=== PATIENT | male | born 1945 | race Caucasian/White ===

== ENCOUNTER 2018-12-04 11:46 | Outpatient (CLI) | payer MEDICARE, OTHER, SELFPAY ==
[2018-12-04 13:28] LABS: BUN 29 mg/dL (7-18); CREATININE 1.03 mg/dL (0.70-1.30); Calcium 9.6 mg/dL (8.5-10.1); Chloride 101 mmol/L (98-107); Glucose 90 mg/dL (70-100); Potassium 5.3 mmol/L (3.5-5.1); Sodium 139 mmol/L (136-145)
== END 2018-12-04 12:06 ==
PROVIDERS: PCP Family Medicine; Visit Provider Family Medicine
DX: I10 Essential (primary) hypertension (principal)
CPT/HCPCS: 36415; 80048

== ENCOUNTER 2019-11-30 13:35 | Outpatient (CLI) | payer MEDICARE, OTHER, SELFPAY ==
--- NOTE | 2019-11-30 14:16 | DI.RAD_ITS ---
EXAM: XR CHEST 2V PA LATERAL CLINICAL HISTORY: copd, J44.9 TECHNIQUE: 2D digital imaging was performed. COMPARISON: CR CHEST 2 VIEWS PA,LAT from 05/19/2009 FINDINGS: MEDIASTINUM: Normal. HEART: Normal. PULMONARY VASCULATURE: Normal. LUNGS: Clear. The lungs are hyperinflated consistent with COPD. PLEURAL SPACE: No pleural effusion or pneumothorax. BONE:No acute abnormality. OTHER FINDINGS:Normal. IMPRESSION: COPD. DATA REPOSITORY: RADIATION DOSE DELIVERED:
== END 2019-11-30 13:55 ==
PROVIDERS: PCP Family Medicine; Visit Provider Nurse Practitioner Family
DX: J44.9 Chronic obstructive pulmonary disease, unspecified (principal)
CPT/HCPCS: 71046

== ENCOUNTER 2019-12-01 03:31 | Outpatient (CLI) | payer MEDICARE, OTHER, SELFPAY ==
[2019-12-01 09:42] LABS: Abs Immature Grans 0.06 k/cumm (0.0-0.09); Absolute Basophil Count 0.04 k/cumm (0.0-0.2); Absolute Eosinophil Count 0.66 k/cumm (0.0-0.7); Absolute Lymphocyte Count 2.64 k/cumm (1.2-3.4); Absolute Monocyte Count 1.01 k/cumm (0.11-0.7); Absolute Neutrophil Count 9.95 k/cumm (1.2-6.7); Basophils % 0.3; Eosinophils % 4.6; HCT 43.7 % (40.0-50.0); HGB 14.3 g/dL (13.5-17.5); Immature Grans % 0.4 %; Lymphocytes % 18.4; Mean Corp. HGB Concentration 32.7 g/dL (32.0-36.0); Mean Corpuscular Hemoglobin 30.6 pg (27.0-33.0); Mean Corpuscular Volume 93.4 fL (80-95); Mean Platelet Volume 9.7 fL (8.0-11.0); Neutrophils % 69.3; Platelet Count 390 x1000/uL (130-400); RBC 4.68 m/cumm (4.50-6.00); RBC Distribution Width 13.5 % (11.8-14.1); White Blood Cell Count 14.36 k/cumm (4.4-10.8)
[2019-12-01 10:59] LABS: BUN 23 mg/dL (7-18); CREATININE 1.11 mg/dL (0.70-1.30); Calcium 9.7 mg/dL (8.5-10.1); Chloride 99 mmol/L (98-107); Glucose 95 mg/dL (74-106); NT-proBNP 56 pg/mL (<300); Potassium 4.9 mmol/L (3.5-5.1); Sodium 137 mmol/L (136-145)
== END 2019-12-01 03:51 ==
PROVIDERS: PCP Family Medicine; Visit Provider Nurse Practitioner Family
DX: R60.9 Edema, unspecified (principal)
CPT/HCPCS: 36415; 80048; 83880; 85025

== ENCOUNTER 2020-07-07 03:50 | Outpatient (CLI) | payer MEDICARE, OTHER, SELFPAY ==
[2020-07-07] MEDS: Albuterol HFA 18 GM 200 PUFF INH IH (14:07)
[2020-07-07] MEDS: Inhaler, Assist Device 1 EACH MC (14:07)
--- NOTE | 2020-07-11 15:42 | W.PFT ---
Date of service: 07/07/20 Time of Service: 12:57 Pulmonary Function Test Result Interpretation Spirometry: severe obstructive airways disease with significant bronchodilator response Lung Volumes: No evidence of restriction, mild to moderate hyperinflation and air trapping Diffusion Capacity: Severely reduced, which is mildly reduced when corrected to alveolar volume Airway Pressure: Markedly elevated Impression Severe obstructive airways disease with significant bronchodilator response, this is associated with mild to moderate hyperinflation and air trapping and severe diffusion defect. Airways resistance is markedly elevated Clinical Correlation therefore is recommended.
== END 2020-07-07 03:51 | disposition home or self-care (01) ==
LOC: RT 03:51
PROVIDERS: PCP Nurse Practitioner Family; Visit Provider Nurse Practitioner Family
DX: J44.9 Chronic obstructive pulmonary disease, unspecified (principal); F17.290 Nicotine dependence, other tobacco product, uncomplicated; N40.0 Benign prostatic hyperplasia without lower urinary tract symptoms; E78.5 Hyperlipidemia, unspecified; R73.01 Impaired fasting glucose; I10 Essential (primary) hypertension
CPT/HCPCS: 36415; 80048; 80061; 84153; 94060; 94726; 94729; 83036

== ENCOUNTER 2020-07-07 10:56 | Outpatient (CLI) | payer MEDICARE, OTHER, SELFPAY ==
[2020-07-07 11:59] LABS: Hemoglobin A1C 6.3 % (<5.7)
[2020-07-07 12:13] LABS: Anion Gap 10.2 mmol/L (3-11); BUN 27 mg/dL (7-18); CO2 26.8 mmol/L (21.0-32.0); CREATININE 0.9 mg/dL (0.70-1.30); Calcium 9.6 mg/dL (8.5-10.1); Calculated LDL 121 mg/dL (<100); Chloride 102 mmol/L (98-107); Cholesterol 187 mg/dL (<200); Glucose 94 mg/dL (74-106); HDL Cholesterol 28 mg/dL (40-60); Sodium 139 mmol/L (136-145); Triglyceride 193 mg/dL (<150)
[2020-07-07 18:54] LABS: PSA, Screening 0.5 ng/mL (0.0-6.5)
== END 2020-07-07 10:57 | disposition home or self-care (01) ==
LOC: LBO 10:57
PROVIDERS: PCP Nurse Practitioner Family; Visit Provider Nurse Practitioner Family
DX: N40.0 Benign prostatic hyperplasia without lower urinary tract symptoms (principal); E78.5 Hyperlipidemia, unspecified; R73.01 Impaired fasting glucose; I10 Essential (primary) hypertension
CPT/HCPCS: 36415; 80048; 80061; 84153; 83036

== ENCOUNTER 2020-07-26 01:07 | Outpatient (CLI) | payer MEDICARE, OTHER, SELFPAY ==
--- NOTE | 2020-07-26 14:08 | DI.RAD_ITS ---
EXAM: XR KNEE RT 3V AP,LAT,KENNA CLINICAL HISTORY: BILAT KNEE PAIN,M25.561 TECHNIQUE: COMPARISON: CR XR KNEE LT 3V AP,LAT,KENNA from 07/26/2020 FINDINGS: Three views were obtained. There is patchy demineralization of the bones the knee. There is severe narrowing of the cartilaginous joint space of the lateral tibiofemoral joint with moderate valgus ang ulation knee. There are prominent marginal osteophytes of the lateral tibiofemoral joint and the pat ellofemoral joint. 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 RADIATION DOSE DELIVERED: Total DLP
--- NOTE | 2020-07-26 14:08 | DI.RAD_ITS ---
EXAM: XR KNEE LT 3V AP,LAT,KENNA CLINICAL HISTORY: KNEE PAIN,ARTHRITIS LT KNEE, M17.12,M25.562 TECHNIQUE: COMPARISON: No exams were available for comparison FINDINGS: Three views were obtained. Bones appear demineralized in a patchy fashion. There is severe narrowin g of the cartilaginous joint space of the lateral tibiofemoral joint and moderate narrowing cartilagi nous joint space of medial tibiofemoral joint. There are moderate marginal osteophytes all 3 joints of the knee. IMPRESSION: Severe DJD of lateral tibiofemoral joint. RADIATION DOSE DELIVERED: Total DLP
== END 2020-07-26 01:27 ==
PROVIDERS: PCP Nurse Practitioner Family; Visit Provider Nurse Practitioner Family
DX: M17.11 Unilateral primary osteoarthritis, right knee (principal); M17.12 Unilateral primary osteoarthritis, left knee; M21.061 Valgus deformity, not elsewhere classified, right knee
CPT/HCPCS: 73562

== ENCOUNTER → 2020-08-12 13:19 | Outpatient (BNVA) | payer MEDICARE, OTHER, SELFPAY | PROVIDERS: PCP Nurse Practitioner Family; Referring Provider Nurse Practitioner Family; Visit Provider Physical Therapy Assistant | DX: R19.5 Other fecal abnormalities (principal); J44.9 Chronic obstructive pulmonary disease, unspecified; F17.290 Nicotine dependence, other tobacco product, uncomplicated | CPT/HCPCS: 99203 ==

== ENCOUNTER 2020-08-24 03:00 | Outpatient (CLI) | payer MEDICARE, OTHER, SELFPAY ==
[2020-08-24 11:06] LABS: Source Nasal/Nares
[2020-08-24 14:05] LABS: COVID-19 PCR Negative (Negative)
== END 2020-08-24 03:01 | disposition home or self-care (01) ==
LOC: LBO 03:00
PROVIDERS: Surgery; PCP Nurse Practitioner Family; Visit Provider Physical Therapy Assistant
DX: Z20.822 Contact with and (suspected) exposure to COVID-19 (principal); Z01.818 Encounter for other preprocedural examination
CPT/HCPCS: 87635

== ENCOUNTER 2020-08-26 11:15 | Day surgery (SDC) | payer MEDICARE, OTHER, SELFPAY ==
[2020-08-26 11:17] VITALS: BP 128/56; PULSE 70; RESP 22; TEMP 36.6; O2SAT 96
[2020-08-26] MEDS: Lactated Ringers 1,000 ML 80 ML IV (12:10)
--- NOTE | 2020-08-26 12:44 | W.PM.DSUDISC ---
Discharge Plan Disposition Patient Disposition: HOME Condition: Fair Discharge Details Reason For Visit: colon scope Attending Provider: Deanna Longoria Primary Care Provider: Lexii Coello Home Meds and New Rx's Prescriptions: Continued ipratropium bromide 42 mcg (0.06 %) spray,non-aerosol 2 spray LUCRETIA TID PRN (Reason: allergy symptoms) Qty: 15 RF: 0 sertraline 25 mg tablet 25 mg PO DAILY Qty: 90 RF: 3 lisinopril-hydrochlorothiazide [Zestoretic] 20-12.5 mg tablet 1 tab PO DAILY Qty: 90 RF: 4 clotrimazole [Antifungal (clotrimazole)] 1 % cream 1 applic TP BID Qty: 30 RF: 1 naproxen 500 mg tablet 500 mg PO BID PRN (Reason: pain) Qty: 180 RF: 4 albuterol sulfate [ProAir HFA] 90 mcg/actuation HFA aerosol inhaler 2 puff Inhalation Q6H PRN Qty: 3 RF: 3 tamsulosin [Flomax] 0.4 mg capsule 0.4 mg PO HS Qty: 90 RF: 4 rosuvastatin 10 mg tablet 10 mg PO DAILY Qty: 90 RF: 4 Spiriva Respimat 1.25 mcg/actuation mist 2 inh inhalation DAILY Qty: 4 RF: 4 triamcinolone acetonide 0.1 % cream 1 applic Topical DAILY PRN (Reason: rash) Qty: 80 RF: 1 Discharge Instructions Additional Instructions: Findings:diverticula/no polyps Follow up:no further colon cancer screenings Please call if you develop: fevers >101.5 Nausea or Vomiting Abdominal pain that is not transient DAY SURGERY UNIT POST COLONOSCOPY INSTRUCTIONS 1. Because there will be medication in your system for the next 24 hours, you may feel a little sleepy. Your coordination will be affected. Therefore: a. Do not drive or operate dangerous equipment for 24 hours. b. Do not drink alcohol beverages for 24 hours (not even beer). c. Plan to go home and rest for the day. 2. Generally there are no restrictions on your activity after a day or so has gone by, but you may feel a bit fatigued for a few days. 3 After you arrive home you may have a light meal and return to a normal diet as you can tolerate it without feeling sick to your stomach. 4. After surgery, you may feel pain or discomfort. This should be only transient, but if it persists please contact your doctor. 5. If there are any questions regarding the findings of your procedure, please feel free to contact your doctor. 6. If you are unable to contact your doctor with a problem, contact the hospital at [phone]. 7. Continue all your regular medications unless directed otherwise. I understand the above instructions and have no questions. Signature of Patient or Responsible Adult Escort Date/Time Name of Responsible Adult Escort Signature of Nurse Date/Time Activity:: Activity as Tolerated Diet:: Carb Counting Discharge Orders Discharge Orders: Discharge Order (Routine); Ordered 08/26/20 Ordered By: Deanna Longoria
--- NOTE | 2020-08-26 13:00 | W.COLOREPORT ---
Date of service: 08/26/20 Time of Service: 13:00 Colonoscopy Report Date of procedure: 08/26/20 Pre-op diagnosis general: + cologuard Post-op diagnosis procedure note: other (diverticula ) Anesthesia Type: General:No Airway Pathology: none sent Complications: None Disposition: same day Prep: Miralax/Dulcolax Retraction Time: 15 Procedure Description: After informed consent was obtained the patient was taken to the procedure room and placed in a left decubitous position. Monitors were applied and a time out was done. The patients name, date of , procedure, allergies to medications and metal in their body was reviewed. The patient was then sedated. Once sedated and comfortable a rectal exam was done. External exam was normal. Internal exam revealed a normal sphincter tone and no palpable masses. The scope was then introduced and retrofelexed. No internal hemorrhoids were identified. The scope was then advanced to the cecum w/out difficulty. The TI and appendiceal orifice were identified. The prep was good. The scope was then slowly retracted over 15 minutes back into the rectum. The bowel is examined w/ two passes; no polyps are identified. There were no polyps or AVM's. There were mult. diverticula in the sigmoid colon- there is no signs of active infection. The scope was removed and the patient was woken up and taken back to Same day surgery in stable condition. The patient tolerated the procedure well and there were no immediate complications. Follow up: The patient does not need to repeat his colonscopy, unless they develop changes in bowel habits or other new gastrointestinal complaints.
[2020-08-26 13:18] VITALS: BP 117/49; PULSE 69; RESP 22; TEMP 36.6; O2SAT 97
== END 2020-08-26 14:00 | disposition home or self-care (01) ==
PROVIDERS: PCP Nurse Practitioner Family; Visit Provider Surgery
PROC: 0DJD8ZZ Inspection of Lower Intestinal Tract, Via Natural or Artificial Opening Endoscopic (ICD-10-PCS; CPT 45378; principal; 2020-08-26 11:30)
DX: R19.5 Other fecal abnormalities (principal); K57.30 Diverticulosis of large intestine without perforation or abscess without bleeding; J44.9 Chronic obstructive pulmonary disease, unspecified; I10 Essential (primary) hypertension
CPT/HCPCS: 45378; J2001; J2405; J2704

== ENCOUNTER → 2020-09-01 09:30 | Outpatient (BNVA) | payer MEDICARE, OTHER, SELFPAY | PROVIDERS: PCP Nurse Practitioner Family; Referring Provider Nurse Practitioner Family; Visit Provider Student in an Organized Health Care Education/Training Program | DX: M17.11 Unilateral primary osteoarthritis, right knee (principal); M17.12 Unilateral primary osteoarthritis, left knee; G82.20 Paraplegia, unspecified; J44.9 Chronic obstructive pulmonary disease, unspecified; I10 Essential (primary) hypertension | CPT/HCPCS: 99214 ==

== ENCOUNTER 2020-10-26 08:20 | Outpatient (CLI) | payer MEDICARE, OTHER, SELFPAY ==
[2020-10-26 13:39] LABS: Abs Immature Grans 0.07 10^3/uL (0.0-0.06); Absolute Monocyte Count 0.99 10^3/uL (0.1-0.8); Basophils % 0.4; Eosinophils % 2.9; HCT 42.4 % (40.0-50.0); HGB 13.9 g/dL (13.5-17.5); Immature Grans % 0.4; Lymphocytes % 18.2; MCHC 32.8 % (32.0-36.0); MCV 91.4 fL (80-95); MPV 9.1 fL (8.0-11.0); Monocytes % 6.2; Neutrophils % 71.9; Nucleated RBC 0 %; Platelet Count 348 10^3/uL (130-400); RBC 4.64 10^6/uL (4.36-5.78); RDW 13.5 % (11.8-14.1); RDW-SD 45.2 fL; WBC 16.03 10^3/uL (4.4-10.8)
[2020-10-26 13:44] LABS: Absolute Basophil Count 0.06 10^3/uL (0.0-0.2); Absolute Eosinophil Count 0.46 10^3/uL (0.0-0.7); Absolute Lymphocyte Count 2.92 10^3/uL (1.2-3.4); Absolute Neutrophil Count 11.53 10^3/uL (1.2-6.7)
[2020-10-26 14:13] LABS: Bilirubin Negative (Negative); Blood Large (Negative); Clarity Sl Cloudy (Clear); Glucose Negative (Negative); Ketones Negative (Negative); Leukocyte Esterase Moderate (Negative); Nitrite Positive (Negative); Specific Gravity >= 1.030 (1.005-1.025); Urobilinogen 0.2 EU/dL (Up TO 0.2); pH 5.5 (5-8)
[2020-10-26 14:20] LABS: Bacteria Moderate HPF (Negative); C & S Indicated? Yes; Casts Negative LPF (Negative); Crystals Negative HPF (Negative); Epithelial Cells Few HPF (Negative); Mucus Negative (Negative); RBC >50 HPF (0-2); WBC 20-50 HPF (0-5)
[2020-10-26 16:04] LABS: BUN 31 mg/dL (7-18); CREATININE 1.6 mg/dL (0.70-1.30); Calcium 9.3 mg/dL (8.5-10.1); Chloride 105 mmol/L (98-107); Estimated GFR 42.58 (mL/min/1.73m2); Glucose 99 mg/dL (74-106); Potassium 4.9 mmol/L (3.5-5.1); Sodium 142 mmol/L (136-145)
== END 2020-10-26 08:21 | disposition home or self-care (01) ==
LOC: LBO 08:22
PROVIDERS: PCP Nurse Practitioner Family; Visit Provider Podiatrist
DX: L95.8 Other vasculitis limited to the skin (principal); R21 Rash and other nonspecific skin eruption; I73.9 Peripheral vascular disease, unspecified
CPT/HCPCS: 36415; 80048; 87077; 81003; 81015; 85025; 87086; 87186

== ENCOUNTER 2020-10-27 08:31 | Outpatient (REF) | payer MEDICARE, OTHER, SELFPAY ==
[2020-10-27 21:14] LABS: ESR 17 mm/hr (0-20)
[2020-10-27 21:53] LABS: ALT 28 U/L (16-63); AST 24 U/L (15-37); Albumin 3.9 g/dL (3.4-5.0); Alkaline Phosphatase 73 U/L (46-116); BUN 27 mg/dL (7-18); Bilirubin, Total 0.4 mg/dL (0.2-1.0); CREATININE 1.2 mg/dL (0.70-1.30); Calcium 9.7 mg/dL (8.5-10.1); Chloride 103 mmol/L (98-107); Estimated GFR 59.35 (mL/min/1.73m2); Glucose 79 mg/dL (74-106); Potassium 4.7 mmol/L (3.5-5.1); Sodium 138 mmol/L (136-145); Total Protein 7.5 g/dL (6.4-8.2)
[2020-10-27 22:07] LABS: C-Reactive Protein 1.43 mg/dL (0.0-0.3)
[2020-10-31 09:39] LABS: HBs Antibody, Quant <3.1 mIU/mL (See Note); Hepatitis B Surface Ab Negative (See Note)
[2020-10-31 10:38] LABS: Hepatitis C Ab w Rflx HCV PCR Negative (Negative)
[2020-10-31 12:50] LABS: ANA Interpretation Positive (Negative)
== END 2020-10-28 13:32 | disposition home or self-care (01) ==
LOC: LBN 08:31
PROVIDERS: PCP Nurse Practitioner Family; Visit Provider Nurse Practitioner Family
DX: L95.8 Other vasculitis limited to the skin (principal); R21 Rash and other nonspecific skin eruption
CPT/HCPCS: 80053; 85652; 86706; 86803; 86038; 86140

== ENCOUNTER → 2020-10-31 15:34 | Outpatient (BNVA) | payer MEDICARE, OTHER, SELFPAY | PROVIDERS: PCP Nurse Practitioner Family; Referring Provider Nurse Practitioner Family; Visit Provider Student in an Organized Health Care Education/Training Program | DX: R69 Illness, unspecified (principal) ==

== ENCOUNTER 2020-11-01 03:18 | Outpatient (CLI) | payer MEDICARE, OTHER, SELFPAY ==
[2020-11-01 10:28] LABS: Bilirubin Negative (Negative); Blood Trace-lysed (Negative); Clarity Clear (Clear); Glucose Negative (Negative); Ketones Negative (Negative); Leukocyte Esterase Small (Negative); Nitrite Negative (Negative); Specific Gravity 1.025 (1.005-1.025); Urobilinogen 0.2 EU/dL (Up TO 0.2)
[2020-11-01 11:09] LABS: Bacteria Moderate HPF (Negative); C & S Indicated? Yes; Casts Negative LPF (Negative); Crystals Negative HPF (Negative); Epithelial Cells Few HPF (Negative); Mucus Moderate (Negative); Other Cells Negative (Negative); RBC 0-2 HPF (0-2); WBC 20-50 HPF (0-5)
[2020-11-03 11:04] LABS: Cryoglobulin, S Negative %ppt (Negative)
== END 2020-11-01 03:19 | disposition home or self-care (01) ==
LOC: LBO 03:18
PROVIDERS: PCP Nurse Practitioner Family; Visit Provider Nurse Practitioner Family
DX: R82.998 Other abnormal findings in urine (principal); L95.8 Other vasculitis limited to the skin; R60.0 Localized edema
CPT/HCPCS: 36415; 81003; 81015; 82595; 87086

== ENCOUNTER 2022-01-26 11:02 | Outpatient (CLI) | payer MEDICARE, OTHER, SELFPAY ==
[2022-01-26 12:32] LABS: Anion Gap 6.6 mmol/L (3-11); BUN 24 mg/dL (7-18); CO2 29.4 mmol/L (21.0-32.0); Calcium 9.7 mg/dL (8.5-10.1); Chloride 101 mmol/L (98-107); Estimated GFR 78.98 (mL/min/1.73m2); Glucose 86 mg/dL (74-106); Potassium 4.4 mmol/L (3.5-5.1); Sodium 137 mmol/L (136-145)
[2022-01-26 13:56] LABS: Hemoglobin A1C 5.7 % (<5.7)
== END 2022-01-26 11:03 | disposition home or self-care (01) ==
LOC: LOS 11:04
PROVIDERS: PCP Nurse Practitioner Family; Visit Provider Nurse Practitioner Family
DX: R73.03 Prediabetes (principal)
CPT/HCPCS: 36415; 80048; 83036

== ENCOUNTER → 2022-08-13 11:14 | Outpatient (BNVA) | payer MEDICARE, OTHER, SELFPAY | PROVIDERS: PCP Nurse Practitioner Family; Referring Provider Nurse Practitioner Family; Visit Provider Student in an Organized Health Care Education/Training Program | DX: M17.11 Unilateral primary osteoarthritis, right knee (principal); M17.12 Unilateral primary osteoarthritis, left knee; R26.89 Other abnormalities of gait and mobility; M47.812 Spondylosis without myelopathy or radiculopathy, cervical region; M47.816 Spondylosis without myelopathy or radiculopathy, lumbar region | CPT/HCPCS: 20610; J1040 ==

== ENCOUNTER 2022-08-24 00:58 | Outpatient (CLI) | payer MEDICARE, OTHER, SELFPAY ==
--- NOTE | 2022-08-24 07:45 | DI.MRI_ITS ---
Exam(s) MR LUMBAR SPINE WO EXAM: MR LUMBAR SPINE WO CLINICAL HISTORY: known severe DJD, chronic BLE weakness,paresthesias lower legs,m47.816. TECHNIQUE: Multiplanar multisequence MRI of the Lumbar spine was performed. COMPARISON: CR LUMBAR SPINE COMPLETE from 10/09/2012 FINDINGS: Exam mildly limited by motion. Prominent endplate osteophytes throughout consistent with DISH. Mult ilevel moderate to severe disc space narrowing. Multiple Schmorl's nodes noted. No acute fracture. Conus medullaris appears normal. L1-2: Moderate right neural foraminal narrowing. No significant central canal stenosis. L2-3: Broad-based disc osteophytes. Facet degenerative changes and ligamentous hypertrophy combining to produce qopp-mv-swnvglvq central canal stenosis and moderate bilateral neural foraminal narrowing . L3-4: Facet degenerative changes cause slight narrowing of the transverse diameter of the central can al. Severe left and moderate right neural foraminal narrowing. L4-5: Prominent endplate osteophytes. Facet degenerative changes. No significant central canal sten osis. Moderate right and mild left neural foraminal narrowing. L5-S1: Prominent endplate osteophytes. No significant central canal stenosis or neural foraminal olga rowing. IMPRESSION: Multilevel degenerative disc changes and facet degenerative changes causing bilateral neural foramina l narrowing. Tujp-ax-alwtudzq central canal stenosis noted at L2-3. DATA REPOSITORY:
--- NOTE | 2022-08-24 07:45 | DI.MRI_ITS ---
Exam(s) MR CERVICAL SPINE WO EXAM: MR CERVICAL SPINE WO CLINICAL HISTORY: gait imbalance, artificial disc? C3-C4,h/o spine surgery,r26.9,x98.890 TECHNIQUE: Multiplanar multisequence MRI of the cervical spine was performed without intravenous con trast. COMPARISON: No exams were available for comparison FINDINGS: Exam is limited by motion and thoracic kyphosis. BONES: A disc spacer is noted at the C3-4 level. Vertebral body heights are maintained. Alignment is normal. Bone marrow signal intensity is within normal limits. CERVICAL CORD: Craniovertebral junction is unremarkable. Focus of high signal seen within the cervic al cord at the C4 level SOFT TISSUES: Unremarkable. C2-3: Loss of normal disc height. Broad-based disc osteophytes. Significant narrowing of the AP dim ension of the canal with impingement on the cord. No neural foraminal narrowing. C3-4: Disc spacer. Endplate osteophytes remain present laterally, eccentric toward the right with se rakel narrowing of the AP dimension of the canal. Severe bilateral neural foraminal narrowing. C4-5: Loss of disc height. Broad-based disc osteophytes. Facet degenerative changes. Severe narrow ing of the AP dimension of the central canal as well as bilateral neural foraminal narrowing. C5-6: Loss of disc height, broad-based disc osteophytes. Mild narrowing of the AP dimension of the c entral canal. Bilateral neural foraminal narrowing. C6-7: Loss of disc height and mild endplate osteophytes. No significant central canal stenosis. C7-T1: Mild disc bulging.. No evidence of neural foraminal narrowing. No significant central canal s tenosis IMPRESSION: Severe degenerative changes are noted from C2-3 through C5-6, causing significant central canal steno sis. Abnormal high signal in the cord at C4. Multilevel severe bilateral neural foraminal narrowing . DATA REPOSITORY:
== END 2022-08-24 01:18 ==
LOC: DI 00:59
PROVIDERS: PCP Nurse Practitioner Family; Visit Provider Nurse Practitioner Family
DX: R26.9 Unspecified abnormalities of gait and mobility (principal); Z98.890 Other specified postprocedural states; G82.20 Paraplegia, unspecified; M47.816 Spondylosis without myelopathy or radiculopathy, lumbar region
CPT/HCPCS: 72141; 72148

== ENCOUNTER 2022-10-12 17:28 | Outpatient (CLI) | payer MEDICARE, OTHER, SELFPAY ==
--- NOTE | 2022-10-12 18:32 | DI.RAD_ITS ---
Exam(s) XR CHEST 2V PA LATERAL EXAM: XR CHEST 2V PA LATERAL CLINICAL HISTORY: cough, leg edema, r/o pleura effusion TECHNIQUE: 2D digital imaging was performed of the chest. Two images were obtained. PA and lateral views were obtained. COMPARISON: CR XR CHEST 2V PA LATERAL from 11/30/2019 FINDINGS: MEDIASTINUM: Normal. HEART: Normal. PULMONARY VASCULATURE: Normal. LUNGS: The lungs are hyperinflated suggesting underlying COPD. No focal consolidating infiltrates ar e seen. PLEURAL SPACE: No pleural effusion or pneumothorax. BONE:Within normal limits for the patient's age. OTHER FINDINGS:Normal. IMPRESSION: No acute pulmonary findings. DATA REPOSITORY: RADIATION DOSE DELIVERED:
--- NOTE | 2022-10-12 18:58 | DI.VRAD_ITS ---
PROCEDURE INFORMATION: Exam: XR Chest Exam date and time: 10/12/2022 6:37 PM Age: 77 years old Clinical indication: Cough and other: Cough, leg edema, R/O pleura effusion TECHNIQUE: Imaging protocol: Radiologic exam of the chest. Views: 2 views. COMPARISON: CR XR CHEST 2V PA LATERAL 11/30/2019 2:07 PM FINDINGS: Lungs: Emphysema without airspace consolidation. Pleural spaces: No pleural effusion. No pneumothorax. Heart/Mediastinum: No cardiomegaly. Bones/joints: Chronic bony changes with no acute fracture. IMPRESSION: Emphysema without airspace consolidation. Dictated and Authenticated by: Monica Scott MD. Ordering:LEA Bobby MD
== END 2022-10-12 17:48 ==
PROVIDERS: PCP Nurse Practitioner Family; Visit Provider Physician Assistant
DX: R05.9 Cough, unspecified (principal); R22.40 Localized swelling, mass and lump, unspecified lower limb
CPT/HCPCS: 71046

== ENCOUNTER 2022-10-12 20:51 | Outpatient (REF) | payer MEDICARE, OTHER, SELFPAY ==
[2022-10-12 21:33] LABS: ALT 41 U/L (16-63); AST 30 U/L (15-37); Albumin 3.6 g/dL (3.4-5.0); Alkaline Phosphatase 63 U/L (46-116); Anion Gap 5.8 mmol/L (3-11); BUN 27 mg/dL (7-18); Bilirubin, Total 0.3 mg/dL (0.2-1.0); CO2 27.2 mmol/L (21.0-32.0); Calcium 9.3 mg/dL (8.5-10.1); Chloride 100 mmol/L (98-107); Estimated GFR 78.49 (mL/min/1.73m2); Glucose 87 mg/dL (74-106); NT-proBNP 45 pg/mL (<300); Potassium 4.6 mmol/L (3.5-5.1); Sodium 133 mmol/L (136-145); Total Protein 7.1 g/dL (6.4-8.2)
== END 2022-10-12 20:52 | disposition home or self-care (01) ==
LOC: LBN 20:51
PROVIDERS: PCP Nurse Practitioner Family; Visit Provider Physician Assistant
DX: R06.01 Orthopnea (principal); R60.0 Localized edema
CPT/HCPCS: 80053; 83880

== ENCOUNTER 2022-11-06 00:40 | Outpatient (CLI) | payer MEDICARE, OTHER, SELFPAY ==
--- NOTE | 2022-11-06 07:45 | DI.CT_ITS ---
Exam(s) CT ABD AORTA CTA W RUNOFF EXAM: CT ABD AORTA CTA W RUNOFF CLINICAL HISTORY: Chronic peripheral vascular disease abnormal ABIs,I73.9. TECHNIQUE: Imaging Protocol: Axial CT angiography was performed with multi-slice acquisition and mu lti-planar and/or 3D reconstructions. CONTRAST MATERIAL: Intravenous: Omnipaque 350 Contrast volume:150 ml Contrast route:IV - Oral: no COMPARISON: No exams were available for comparison FINDINGS: Vascular Structures: Abdomen: Celiac Walker/SMA: No evidence of stenosis. Renal Arteries: Scattered calcifications, right greater than left but no significant stenosis stenosi s. There is a single renal artery perfusing each kidney. Aorta: Calcifications along wall of aorta and mild mural thrombus. No significant narrowing. No aneur ysm. No dissection. Pelvis: Iliac Arteries: Scattered calcifications. No evidence of stenosis. Common Femoral Arteries: No evidence of stenosis. Lower extremities: Right: Common Femoral: No evidence of stenosis. Superficial Femoral: Multifocal pimq-gw-jqjujmjp areas of narrowing. Popliteal: Multifocal dyhl-ej-zeglmwcn areas of stenosis. Distal vessels: Multifocal calcified and noncalcified plaque. Markedly reduced caliber and difficult to visualize. Visualized flow distal foot. Left: Common Femoral: No evidence of stenosis. Superficial Femoral: Multifocal areas of plaque causing fqoz-gz-avqiccps stenosis. Popliteal: No significant stenosis. Distal vessels: Multifocal areas of irregular calcified and noncalcified plaque. Markedly reduced jennifer iber. Vessels difficult to visualize. Soft Tissues: Liver: Fatty infiltration no measurable mass. Gallbladder and biliary tract: No radiodense calculus or biliary dilation. Apparent gallbladder wall thickening. No stones visible. Pancreas: Normal density, no abnormal calcifications or inflammatory process. Spleen: Normal. Kidneys: Normal size, contour and axis. No radiodense stones or obstructive uropathy. No masses seen. Adrenal glands: No masses seen. Aorta: Abdominal portion non-dilated. Bladder: Symmetric distention, no gross wall thickening. Bowel: No obstruction or bowel wall thickening. Appendix normal. Peritoneal cavity: No ascites, collection or mesenteric inflammatory response. Bones: Severe degenerative changes of the lumbar spine. Reproductive: Enlarged prostate. Soft tissues: Severe lower leg edema. IMPRESSION: Multifocal smyb-uf-ssxgyoah stenosis involving the bilat superficial femoral and right popliteal sai kimberlee Severe irregular stenoses involving the vessels distal to the trifurcation bilaterally. RADIATION DOSE DELIVERED: 1,512.78mGy.cm Total DLP DATA REPOSITORY: All CT scans at this facility are submitted to the National Radiology Data Registry (NRDR) Dose Index Registry (DIR) with the [employer] [place] [employer] (A[employer]). RADIATION OPTIMIZATION: All CT scans at this facility use at least one of these dose optimization te chniques: automated exposure control; mA and/or kV adjustment per patient size (includes targeted exa ms where dose is matched to clinical indication); or iterative reconstruction.
[2022-11-06] MEDS: Normal Saline - Diluent 50 ML VIAL 100 ML IJ (13:27)
[2022-11-06] MEDS: Omnipaque 350 MG/ML 100 ML BTL 150 ML IJ (13:27)
== END 2022-11-06 01:00 ==
LOC: DI 00:40
PROVIDERS: PCP Nurse Practitioner Family; Visit Provider Nurse Practitioner Family
DX: I70.203 Unspecified atherosclerosis of native arteries of extremities, bilateral legs (principal)
CPT/HCPCS: 75635; J3490

== ENCOUNTER → 2022-11-19 10:37 | Outpatient (BNVA) | payer MEDICARE, OTHER, SELFPAY | PROVIDERS: PCP Nurse Practitioner Family; Referring Provider Nurse Practitioner Family; Visit Provider Student in an Organized Health Care Education/Training Program | DX: M17.11 Unilateral primary osteoarthritis, right knee (principal); M17.12 Unilateral primary osteoarthritis, left knee; M48.02 Spinal stenosis, cervical region; G99.2 Myelopathy in diseases classified elsewhere; R60.0 Localized edema | CPT/HCPCS: 20610; J1040 ==

== ENCOUNTER → 2023-02-11 10:38 | Outpatient (BNVA) | payer MEDICARE, OTHER, SELFPAY | PROVIDERS: PCP Nurse Practitioner Family; Referring Provider Nurse Practitioner Family; Visit Provider Student in an Organized Health Care Education/Training Program | DX: M17.11 Unilateral primary osteoarthritis, right knee (principal); M17.12 Unilateral primary osteoarthritis, left knee; M48.02 Spinal stenosis, cervical region; G99.2 Myelopathy in diseases classified elsewhere; G82.22 Paraplegia, incomplete | CPT/HCPCS: 20610; J1040 ==

== ENCOUNTER → 2023-04-29 09:59 | Outpatient (BNVA) | payer MEDICARE, OTHER, SELFPAY | PROVIDERS: PCP Nurse Practitioner Family; Referring Provider Nurse Practitioner Family; Visit Provider Physical Therapy Assistant | DX: I73.9 Peripheral vascular disease, unspecified (principal) | CPT/HCPCS: 93922 ==

== ENCOUNTER → 2023-05-17 10:02 | Outpatient (BNVA) | payer MEDICARE, OTHER, SELFPAY | PROVIDERS: PCP Nurse Practitioner Family; Referring Provider Nurse Practitioner Family; Visit Provider Student in an Organized Health Care Education/Training Program | DX: M17.11 Unilateral primary osteoarthritis, right knee (principal); M17.12 Unilateral primary osteoarthritis, left knee | CPT/HCPCS: 20610; J1040 ==

== ENCOUNTER → 2023-06-26 14:42 | Outpatient (BNVA) | payer MEDICARE, OTHER, SELFPAY | PROVIDERS: PCP Nurse Practitioner Family; Referring Provider Nurse Practitioner Family; Visit Provider Podiatrist | DX: L60.3 Nail dystrophy (principal); I73.89 Other specified peripheral vascular diseases; G82.22 Paraplegia, incomplete; I73.9 Peripheral vascular disease, unspecified; I87.2 Venous insufficiency (chronic) (peripheral); B35.1 Tinea unguium | CPT/HCPCS: 11721 ==

== ENCOUNTER → 2023-08-16 10:06 | Outpatient (BNVA) | payer MEDICARE, OTHER, SELFPAY | PROVIDERS: PCP Nurse Practitioner Family; Referring Provider Nurse Practitioner Family | DX: M17.11 Unilateral primary osteoarthritis, right knee (principal); M17.12 Unilateral primary osteoarthritis, left knee | CPT/HCPCS: 20610; J1040 ==

== ENCOUNTER → 2023-10-30 14:20 | Outpatient (BNVA) | payer MEDICARE, OTHER, SELFPAY | PROVIDERS: PCP Nurse Practitioner Family; Referring Provider Nurse Practitioner Family; Visit Provider Podiatrist | DX: L60.3 Nail dystrophy (principal); I73.89 Other specified peripheral vascular diseases; G82.22 Paraplegia, incomplete; I87.2 Venous insufficiency (chronic) (peripheral); B35.1 Tinea unguium; R60.0 Localized edema | CPT/HCPCS: 11721 ==

== ENCOUNTER → 2023-11-25 13:55 | Outpatient (BNVA) | payer MEDICARE, OTHER, SELFPAY | PROVIDERS: PCP Nurse Practitioner Family; Referring Provider Nurse Practitioner Family; Visit Provider Student in an Organized Health Care Education/Training Program | DX: M17.11 Unilateral primary osteoarthritis, right knee (principal); M17.12 Unilateral primary osteoarthritis, left knee | CPT/HCPCS: 20610; J1010 ==

== ENCOUNTER → 2024-02-24 12:58 | Outpatient (BNVA) | payer MEDICARE, OTHER, SELFPAY | PROVIDERS: PCP Nurse Practitioner Family; Visit Provider Physician Assistant | DX: M17.0 Bilateral primary osteoarthritis of knee (principal) | CPT/HCPCS: 20610; J1010 ==

== ENCOUNTER → 2024-03-04 14:30 | Outpatient (BNVA) | payer MEDICARE, OTHER, SELFPAY | PROVIDERS: PCP Nurse Practitioner Family; Referring Provider Nurse Practitioner Family; Visit Provider Podiatrist | DX: I87.2 Venous insufficiency (chronic) (peripheral) (principal); L03.114 Cellulitis of left upper limb; R60.0 Localized edema | CPT/HCPCS: 29580; 29850 ==

== ENCOUNTER → 2024-03-11 13:01 | Outpatient (BNVA) | payer MEDICARE, OTHER, SELFPAY | PROVIDERS: PCP Nurse Practitioner Family; Referring Provider Nurse Practitioner Family; Visit Provider Podiatrist | DX: L03.116 Cellulitis of left lower limb (principal); R60.0 Localized edema; R20.8 Other disturbances of skin sensation; I73.89 Other specified peripheral vascular diseases | CPT/HCPCS: 11721 ==

== ENCOUNTER → 2024-06-01 14:15 | Outpatient (BNVA) | payer MEDICARE, OTHER, SELFPAY | PROVIDERS: PCP Nurse Practitioner Family; Referring Provider Nurse Practitioner Family; Visit Provider Student in an Organized Health Care Education/Training Program | DX: M17.11 Unilateral primary osteoarthritis, right knee (principal); M17.12 Unilateral primary osteoarthritis, left knee | CPT/HCPCS: 20610; J1010 ==

== ENCOUNTER → 2024-06-04 15:00 | Outpatient (BNVA) | payer MEDICARE, OTHER, SELFPAY | PROVIDERS: PCP Nurse Practitioner Family; Referring Provider Nurse Practitioner Family; Visit Provider Podiatrist | DX: I87.2 Venous insufficiency (chronic) (peripheral) (principal); R60.0 Localized edema; L03.116 Cellulitis of left lower limb; M79.662 Pain in left lower leg | CPT/HCPCS: 99214; 93971 ==

== ENCOUNTER 2024-06-04 15:50 | Outpatient (CLI) | payer MEDICARE, OTHER, SELFPAY ==
--- NOTE | 2024-06-04 15:15 | DI.US_ITS ---
Exam(s) US LOWER EXTREMITY VENOUS LT EXAM: US LOWER EXTREMITY VENOUS LT CLINICAL HISTORY: calf pain, swelling, edema-R60.9,acute embolism and thrombus of unspecified. TECHNIQUE: Lower extremity venous ultrasound performed using grayscale, color-flow, and spectral Do ppler analysis. COMPARISON: No exams were available for comparison FINDINGS: The common femoral, femoral and popliteal veins demonstrate normal compressibility, augmentation, and color Doppler. The posterior tibial and peroneal veins are patent. No saphenous vein thrombosis or other superficial venous thrombosis is seen. There is a Gil's cyst measuring 4.4 x 1.0 x 2.9 cm. There is soft tissue edema. IMPRESSION: Gil's cyst. No evidence of DVT. DATA REPOSITORY:
--- NOTE | 2024-06-04 16:19 | DI.VRAD_ITS ---
PROCEDURE INFORMATION: Exam: US Duplex Left Lower Extremity Veins, Limited Exam date and time: 06/04/2024 3:34 PM Age: 78 years old Clinical indication: Other: Calf pain, swelling, edema TECHNIQUE: Imaging protocol: Real-time duplex ultrasound of the left extremity with 2-D bowie scale, color Doppler flow and spectral waveform analysis including responses to compression and other maneuvers (when performed) with image documentation. Limited exam focused on the left lower extremity veins. COMPARISON: CT ABD AORTA CTA W RUNOFF 11/06/2022 1:31 PM FINDINGS: Left deep veins: Unremarkable. The common femoral, femoral, proximal profunda femoral and popliteal veins are patent without thrombus. Normal Doppler waveforms. Normal compressibility and/or augmentation response. Superficial veins: Greater saphenous vein at the saphenofemoral junction is patent without thrombus. Soft tissues: There is soft tissue edema. There is a popliteal cyst measuring 4.4 x 1.6 x 2.9 cm. IMPRESSION: No evidence of deep vein thrombosis. Popliteal cyst. Soft tissue edema. Dictated and Authenticated by: Valentino Pereira MD. Ordering:FERNANDO Ames MD
== END 2024-06-04 16:10 ==
LOC: DI 15:51
PROVIDERS: PCP Nurse Practitioner Family; Visit Provider Podiatrist
DX: R60.9 Edema, unspecified (principal)
CPT/HCPCS: 93971

== ENCOUNTER → 2024-06-08 14:14 | Outpatient (BNVA) | payer MEDICARE, OTHER, SELFPAY | PROVIDERS: PCP Nurse Practitioner Family; Referring Provider Nurse Practitioner Family; Visit Provider Podiatrist | DX: I87.2 Venous insufficiency (chronic) (peripheral) (principal); L03.115 Cellulitis of right lower limb; L03.116 Cellulitis of left lower limb; R60.0 Localized edema | CPT/HCPCS: 29580; 29850 ==

== ENCOUNTER → 2024-06-11 14:52 | Outpatient (BNVA) | payer MEDICARE, OTHER, SELFPAY | PROVIDERS: PCP Nurse Practitioner Family; Referring Provider Nurse Practitioner Family; Visit Provider Podiatrist | DX: I87.2 Venous insufficiency (chronic) (peripheral) (principal); L03.116 Cellulitis of left lower limb; L97.221 Non-pressure chronic ulcer of left calf limited to breakdown of skin; I70.242 Atherosclerosis of native arteries of left leg with ulceration of calf; R60.0 Localized edema | CPT/HCPCS: 29580; 29850 ==

== ENCOUNTER → 2024-06-24 14:35 | Outpatient (BNVA) | payer MEDICARE, OTHER, SELFPAY | PROVIDERS: PCP Nurse Practitioner Family; Referring Provider Nurse Practitioner Family; Visit Provider Podiatrist | DX: I73.89 Other specified peripheral vascular diseases; I87.2 Venous insufficiency (chronic) (peripheral); R60.0 Localized edema; L60.3 Nail dystrophy; L97.221 Non-pressure chronic ulcer of left calf limited to breakdown of skin; L03.116 Cellulitis of left lower limb; B35.1 Tinea unguium; R09.89 Other specified symptoms and signs involving the circulatory and respiratory systems; L65.9 Nonscarring hair loss, unspecified; R20.8 Other disturbances of skin sensation; R23.8 Other skin changes | CPT/HCPCS: 11721 ==

== ENCOUNTER → 2024-07-15 13:36 | Outpatient (BNVA) | payer MEDICARE, OTHER, SELFPAY | PROVIDERS: PCP Nurse Practitioner Family; Referring Provider Nurse Practitioner Family; Visit Provider Podiatrist | DX: I87.2 Venous insufficiency (chronic) (peripheral) (principal); L97.221 Non-pressure chronic ulcer of left calf limited to breakdown of skin; I70.239 Atherosclerosis of native arteries of right leg with ulceration of unspecified site; L03.116 Cellulitis of left lower limb; R60.0 Localized edema | CPT/HCPCS: 99213 ==

== ENCOUNTER 2024-08-03 21:58 | Outpatient (REF) | payer MEDICARE, OTHER, SELFPAY ==
[2024-08-03 22:17] LABS: Abs Immature Grans 0.05 10^3/uL (0.0-0.06); Absolute Basophil Count 0.08 10^3/uL (0.0-0.2); Absolute Eosinophil Count 0.98 10^3/uL (0.0-0.7); Absolute Lymphocyte Count 2.32 10^3/uL (1.2-3.4); Absolute Monocyte Count 0.91 10^3/uL (0.1-0.8); Absolute Neutrophil Count 8.19 10^3/uL (1.2-6.7); Basophils % 0.6 %; Eosinophils % 7.8 %; HCT 44.9 % (40.0-50.0); HGB 14.4 g/dL (13.5-17.5); Immature Grans % 0.4 %; Lymphocytes % 18.5 %; MCH 30.2 pg (27.0-33.0); MCHC 32.1 % (32.0-36.0); MCV 94 fL (80-95); Monocytes % 7.3 %; Neutrophils % 65.4 %; Platelet Count 333 10^3/uL (130-400); RBC 4.77 10^6/uL (4.36-5.78); RDW 13.2 % (11.8-14.1); RDW-SD 45.9 fL; WBC 12.52 10^3/uL (4.4-10.8)
[2024-08-03 22:55] LABS: Anion Gap 7.5 mmol/L (3-11); BUN 36 mg/dL (7-18); CO2 29.5 mmol/L (21.0-32.0); CREATININE 1.1 mg/dL (0.70-1.30); Calcium 9.7 mg/dL (8.5-10.1); Calculated LDL 67 mg/dL (<100); Chloride 104 mmol/L (98-107); Cholesterol 135 mg/dL (<200); Estimated GFR 69.57 (mL/min/1.73m2); Glucose 82 mg/dL (74-106); HDL Cholesterol 44 mg/dL (>or=40); Potassium 4.6 mmol/L (3.5-5.1); Sodium 141 mmol/L (136-145); Triglyceride 122 mg/dL (<150)
[2024-08-03 22:59] LABS: Hemoglobin A1C 5.9 % (<5.7)
== END 2024-08-03 21:59 | disposition home or self-care (01) ==
LOC: LBN 21:58
PROVIDERS: PCP Nurse Practitioner Family; Visit Provider Nurse Practitioner Family
DX: Z00.00 Encounter for general adult medical examination without abnormal findings (principal); E78.5 Hyperlipidemia, unspecified; R73.03 Prediabetes; D72.829 Elevated white blood cell count, unspecified; Z12.5 Encounter for screening for malignant neoplasm of prostate
CPT/HCPCS: 80048; 80061; 84153; 83036; 85025

== ENCOUNTER → 2024-08-26 11:21 | Outpatient (BNVA) | payer MEDICARE, OTHER, SELFPAY | PROVIDERS: PCP Nurse Practitioner Family; Referring Provider Nurse Practitioner Family; Visit Provider Podiatrist | DX: I87.2 Venous insufficiency (chronic) (peripheral) (principal); L97.221 Non-pressure chronic ulcer of left calf limited to breakdown of skin; I70.235 Atherosclerosis of native arteries of right leg with ulceration of other part of foot; L97.512 Non-pressure chronic ulcer of other part of right foot with fat layer exposed; I89.0 Lymphedema, not elsewhere classified | CPT/HCPCS: 11042; 29580; 97597; 29850 ==

== ENCOUNTER → 2024-08-31 13:48 | Outpatient (BNVA) | payer MEDICARE, OTHER, SELFPAY | PROVIDERS: PCP Nurse Practitioner Family; Referring Provider Nurse Practitioner Family | DX: M17.0 Bilateral primary osteoarthritis of knee (principal) | CPT/HCPCS: 20610; J1010 ==

== ENCOUNTER → 2024-09-23 13:04 | Outpatient (BNVA) | payer MEDICARE, OTHER, SELFPAY | PROVIDERS: PCP Nurse Practitioner Family; Referring Provider Nurse Practitioner Family; Visit Provider Podiatrist | DX: I87.2 Venous insufficiency (chronic) (peripheral) (principal); L97.512 Non-pressure chronic ulcer of other part of right foot with fat layer exposed; R60.0 Localized edema; I70.239 Atherosclerosis of native arteries of right leg with ulceration of unspecified site; I89.0 Lymphedema, not elsewhere classified; M72.2 Plantar fascial fibromatosis | CPT/HCPCS: 99214 ==

== ENCOUNTER → 2024-11-10 10:30 | Outpatient (BNVA) | payer MEDICARE, OTHER, SELFPAY | PROVIDERS: PCP Nurse Practitioner Family; Referring Provider Nurse Practitioner Family; Visit Provider Podiatrist | DX: L60.3 Nail dystrophy (principal); B35.1 Tinea unguium; R60.0 Localized edema; I87.2 Venous insufficiency (chronic) (peripheral); I89.0 Lymphedema, not elsewhere classified; M72.2 Plantar fascial fibromatosis; G82.20 Paraplegia, unspecified; I73.89 Other specified peripheral vascular diseases; R09.89 Other specified symptoms and signs involving the circulatory and respiratory systems; L65.9 Nonscarring hair loss, unspecified; R20.8 Other disturbances of skin sensation; R23.8 Other skin changes; L60.2 Onychogryphosis; L60.8 Other nail disorders | CPT/HCPCS: 11721 ==

== ENCOUNTER 2024-11-24 02:40 | Outpatient (CLI) | payer MEDICARE, OTHER, SELFPAY ==
--- NOTE | 2024-11-24 08:15 | DI.RAD_ITS ---
Exam(s) XR CHEST 2V PA LATERAL EXAM: XR CHEST 2V PA LATERAL CLINICAL HISTORY: f/u recent pneumonia, COPD, J43.9. TECHNIQUE: 2D digital imaging was performed. COMPARISON: CR,XR XR CHEST 2V PA LATERAL from 10/12/2022 FINDINGS: 2 views: Heart size is normal. The mediastinum is not widened. There is bilateral hyperinflation again noted. There is platelike atelectasis in the left lung base. Calcified granuloma in the lateral right lung is unchanged. No evidence of pulmonary edema. No pneumothorax. IMPRESSION: Hyperinflation. Platelike atelectasis in left lung base. DATA REPOSITORY: RADIATION DOSE DELIVERED:
== END 2024-11-24 03:00 ==
LOC: DI 02:40
PROVIDERS: PCP Nurse Practitioner Family; Visit Provider Family Medicine
DX: J43.9 Emphysema, unspecified (principal); J98.11 Atelectasis
CPT/HCPCS: 71046

== ENCOUNTER 2024-11-27 01:06 | Outpatient (CLI) | payer MEDICARE, OTHER, SELFPAY ==
[2024-11-27] MEDS: Inhaler, Assist Device 1 EACH MC (16:29)
[2024-11-27] MEDS: Levalbuterol HFA 15 GM INH 4 PUFF IH (16:29)
--- NOTE | 2024-11-30 07:06 | W.PFT ---
Date of service: 11/27/24 Time of Service: 15:40 Pulmonary Function Test Result Indications: COPD Impression Interpretation: 1. Good patient effort was noted 2. Spirometry showed severe obstructive lung disease with an FEV1 of 37%% (0.97 L). There was a positive brochodilator response 3. TLC an RV are elevated, consistent with airtrapping. No evidence of restrictive lung disease 4. DLCO was 37% precited. indicating a severe defect in alveolar gas exchange Clinical Correlation therefore is recommended.
== END 2024-11-27 01:07 | disposition home or self-care (01) ==
LOC: RT 01:06
PROVIDERS: PCP Nurse Practitioner Family; Visit Provider Internal Medicine Pulmonary Disease
DX: J43.9 Emphysema, unspecified (principal); J44.89 Other specified chronic obstructive pulmonary disease
CPT/HCPCS: 94060; 94726; 94729

== ENCOUNTER → 2024-12-08 09:56 | Outpatient (BNVA) | payer MEDICARE, OTHER, SELFPAY | PROVIDERS: PCP Nurse Practitioner Family; Referring Provider Nurse Practitioner Family; Visit Provider Internal Medicine Pulmonary Disease | DX: J44.9 Chronic obstructive pulmonary disease, unspecified (principal); J43.9 Emphysema, unspecified; R06.00 Dyspnea, unspecified; F17.210 Nicotine dependence, cigarettes, uncomplicated | CPT/HCPCS: 99215; G0296 ==

== ENCOUNTER → 2024-12-10 14:47 | Outpatient (BNVA) | payer MEDICARE, OTHER, SELFPAY | PROVIDERS: PCP Nurse Practitioner Family; Referring Provider Nurse Practitioner Family; Visit Provider Podiatrist | DX: R60.0 Localized edema (principal); I87.2 Venous insufficiency (chronic) (peripheral); M72.2 Plantar fascial fibromatosis; I89.0 Lymphedema, not elsewhere classified; G82.20 Paraplegia, unspecified | CPT/HCPCS: 29580; 29850 ==

== ENCOUNTER 2024-12-24 10:28 | Outpatient (CLI) | payer MEDICARE, OTHER, SELFPAY ==
--- NOTE | 2024-12-24 07:30 | DI.CTLCSR_ITS ---
Exam(s) CT CHEST LUNG CANCER SCREEN EXAM: CT CHEST LUNG CANCER SCREEN CLINICAL HISTORY: Screening for lung cancer,cigarette smoker, F17.210 TECHNIQUE: Imaging Protocol: Axial computed tomography images with coronal and sagittal reformatted images were created and reviewed. Low dose screening protocol. COMPARISON: CR XR CHEST 2V PA LATERAL from 11/24/2024 FINDINGS: Tracheobronchial tree: No bronchiectasis or mucus plugging. Mediastinum and Malika: No dominant adenopathy or fluid collection. Pulmonary parenchyma: No consolidation or dominant measurable mass. Nlut-ed-rcsprgcj emphysematous changes, greater in the upper lobes.. No significant interstitial changes. Lung Nodules: Calcified granuloma laterally in the right middle lobe. 6 millimeter perifissural nodule any right lower lobe. Pleura: No effusion. No pneumothorax. Heart: The heart is not dilated. Mild coronary artery calcifications are seen. No pericardial effusion. Aorta: Thoracic aorta non-dilated. Upper abdomen: Unremarkable. Bones: Syndesmophyte formation along the thoracic spine. Bones appear osteoporotic. Soft Tissues: Bilateral gynecomastia. IMPRESSION: No suspicious pulmonary nodules. Lung RADS Cat 2 - Benign Appearance / Behavior: Nodules with a very low likelihood of becoming a clinically active cancer due to size or lack of growth Lung-RADS 1.0 CATEGORIES: Category 0 - Prior chest CT exam(s) being located for comparison. Category 1 - Annual screening in 12 months. No nodules or definitely benign nodules. Category 2 - Annual screening in 12 months. Benign appearance. Nodules with low likelihood of becoming active cancer. Category 3 - 6-month follow-up. Probably benign. Short-term follow-up suggested. Nodules with low likelihood of becoming active cancer. Category 4A - 3-month follow-up and CT/PET if >8 mm in size. Suspicious finding. Findings which require additional testing. Category 4B - Findings which require additional testing and tissue sampling. Category 4X - Category 3 or 4 nodules with additional features or imaging findings that increases the suspicion of malignancy. Modifier S- Potentially clinically significant findings (non lung cancer) RADIATION DOSE DELIVERED: 48.66mGy.cm Total DLP DATA REPOSITORY: All CT scans at this facility are submitted to the National Radiology Data Registry (NRDR) Dose Index Registry (DIR) with the [employer] ([employer]). RADIATION OPTIMIZATION: All CT scans at this facility use at least one of these dose optimization techniques: automated exposure control; mA and/or kV adjustment per patient size (includes targeted exams where dose is matched to clinical indication); or iterative reconstruction.
== END 2024-12-24 10:48 ==
LOC: DI 10:28
PROVIDERS: PCP Nurse Practitioner Family; Visit Provider Internal Medicine Pulmonary Disease
DX: Z12.2 Encounter for screening for malignant neoplasm of respiratory organs (principal); F17.210 Nicotine dependence, cigarettes, uncomplicated
CPT/HCPCS: 71271

== ENCOUNTER 2024-12-24 15:35 | Outpatient (CLI) | payer MEDICARE, OTHER, SELFPAY ==
--- NOTE | 2024-12-24 10:30 | DI.US_ITS ---
Exam(s) US LOWER EXTREMITY VENOUS RT EXAM: US LOWER EXTREMITY VENOUS RT CLINICAL HISTORY: Edema, warmth, redness R60.9 EDEMA I82.409 EMBOLISM THROMBOSIS LEG. TECHNIQUE: Lower extremity venous ultrasound performed using grayscale, color- flow, and spectral Doppler analysis. COMPARISON: CT CT CHEST LUNG CANCER SCREEN from 12/24/2024 FINDINGS: The common femoral, femoral and popliteal veins demonstrate normal compressibility, augmentation, and color Doppler. The posterior tibial and peroneal veins are patent. No saphenous vein thrombosis or other superficial venous thrombosis is seen. No hematoma or Gil's cyst is seen. There is edema in the subcutaneous fat of the calf region. No localized fluid collection IMPRESSION: Soft tissue edema.. No evidence of DVT. DATA REPOSITORY:
== END 2024-12-24 15:55 ==
LOC: DI 15:37
PROVIDERS: PCP Nurse Practitioner Family; Visit Provider Podiatrist
DX: R60.9 Edema, unspecified (principal)
CPT/HCPCS: 71271; 93971

== ENCOUNTER → 2025-01-04 11:24 | Outpatient (BNVA) | payer MEDICARE, OTHER, SELFPAY | PROVIDERS: PCP Nurse Practitioner Family; Referring Provider Nurse Practitioner Family; Visit Provider Podiatrist | DX: I87.2 Venous insufficiency (chronic) (peripheral) (principal); R60.0 Localized edema; M72.2 Plantar fascial fibromatosis; I89.0 Lymphedema, not elsewhere classified; G82.20 Paraplegia, unspecified | CPT/HCPCS: 99212 ==

== ENCOUNTER → 2025-02-08 13:55 | Outpatient (BNVA) | payer MEDICARE, OTHER, SELFPAY | PROVIDERS: PCP Nurse Practitioner Family; Referring Provider Nurse Practitioner Family; Visit Provider Internal Medicine Pulmonary Disease | DX: J44.89 Other specified chronic obstructive pulmonary disease (principal); J43.9 Emphysema, unspecified; R91.1 Solitary pulmonary nodule; Z87.891 Personal history of nicotine dependence | CPT/HCPCS: 99214; G0296 ==

== ENCOUNTER → 2025-03-16 10:36 | Outpatient (BNVA) | payer MEDICARE, OTHER, SELFPAY | PROVIDERS: PCP Nurse Practitioner Family; Referring Provider Nurse Practitioner Family; Visit Provider Podiatrist | DX: L60.3 Nail dystrophy (principal); B35.1 Tinea unguium; I73.89 Other specified peripheral vascular diseases; I87.2 Venous insufficiency (chronic) (peripheral); I89.0 Lymphedema, not elsewhere classified; G82.20 Paraplegia, unspecified; L60.8 Other nail disorders; L60.2 Onychogryphosis; L85.8 Other specified epidermal thickening; R60.0 Localized edema; R09.89 Other specified symptoms and signs involving the circulatory and respiratory systems; L65.9 Nonscarring hair loss, unspecified; R20.8 Other disturbances of skin sensation; R23.4 Changes in skin texture; R23.8 Other skin changes | CPT/HCPCS: 11721 ==